=== PATIENT | female | born 1955 | race Caucasian/White ===

== ENCOUNTER → 2021-04-28 | Outpatient (CLI) | payer BC ==
--- NOTE | 2021-05-04 15:02 | RAD ---
PROCEDURE: MG BILAT SCREEN+SANDRA HISTORY: The patient is 65 years old and is seen for Reason: SCREENING / Spl. Instructions: / Histor y: . COMPARISON: June 26, 2018 and October 10, 2019. TECHNIQUE: CC and MLO views of both breasts were obtained. Images were processed by the [employer] computer-aided detection system. DENSITY: There are scattered fibroglandular densities. FINDINGS: No developing mass, suspicious calcifications or architectural distortion. IMPRESSION: Negative. No evidence of malignancy. Recommend annual screening mammograms per [employer] guidelines. BI-RADS category 1 Negative Patient entered into a reminder system for annual screening mammogram. Electronically signed by: Eduin Cruz DO (05/04/2021 3:00 PM) [email or web address]
== END ==
LOC: MAMMO 08:26
PROVIDERS: ATTEND Family Medicine
DX: Z12.31 Encounter for screening mammogram for malignant neoplasm of breast (principal)
CPT/HCPCS: 77063; 77067

== ENCOUNTER → 2021-06-07 | Outpatient (CLI) | payer BC ==
--- NOTE | 2021-06-07 16:28 | CARD ---
MR#: [id number] Date of Study: 06/07/2021 Ordering Physician: RUFUS SALGADO, Referring Physician: RUFUS SALGADO, Tech: Negar Lott, [facility] APPROVED REPORT EXAM: Two-dimensional and M-mode echocardiogram with Doppler and color Doppler. Other Information Quality : AverageHR: 85bpm INDICATION Dyspnea RISK FACTORS Hypertension Hyperlipidemia Asthma 2D DIMENSIONS RVDd2.8 (2.9-3.5cm)Left Atrium(2D)3.2 (1.6-4.0cm) IVSd0.8 (0.7-1.1cm)Aortic Root(2D)3.0 (2.0-3.7cm) LVDd5.4 (3.9-5.9cm)LVOT Diameter2.0 (1.8-2.4cm) PWd1.0 (0.7-1.1cm)LVDs3.7 (2.5-4.0cm) FS (%) 32.3 %SV85.0 ml Aortic Valve AoV Peak Devonte.143.5cm/sAoV VTI28.0cm AO Peak GR.8.2mmHgLVOT Peak Devonte.126.9cm/s LVOT VTI 23.95cmAO Mean GR.4mmHg NAZARIO (VMAX)2.51yo8PKP (VTI)2.56cm2 Mitral Valve MV E Qrsqyksh25.1cm/sMV DECEL [id number] MV A Qnhjrhap566.1cm/sE/A Ratio0.8 Pulmonary Valve PV Peak Wvcnsnsx64.5cm/sPV Peak Grad.3mmHg LEFT VENTRICLE The left ventricle is normal size. There is normal left ventricular wall thickness. The left ventricu lar systolic function is normal and the ejection fraction is within normal range. The Ejection Fracti on is 55-60%. There is normal LV segmental wall motion. Transmitral Doppler flow pattern is Grade I-a bnormal relaxation pattern. RIGHT VENTRICLE The right ventricle is normal size. There is normal right ventricular wall thickness. The right ventr icular systolic function is normal. ATRIA The left atrium size is normal. The right atrium size is normal. The interatrial septum is intact wit h no evidence for an atrial septal defect or patent foramen ovale as noted on 2-D or Doppler imaging. AORTIC VALVE The aortic valve is normal in structure and function. Doppler and Color Flow revealed no significant aortic regurgitation. There is no significant aortic valvular stenosis. Calculated aortic valve area is 2.6 cm2 with maximum pressure gradient of 8 mmHg and mean pressure gradient of 4 mmHg. MITRAL VALVE The mitral valve is normal in structure and function. There is no evidence of mitral valve prolapse. There is no mitral valve stenosis. Doppler and Color-flow revealed trace mitral regurgitation. TRICUSPID VALVE The tricuspid valve is normal in structure and function. Doppler and Color Flow revealed no tricuspid valve regurgitation noted. There is no tricuspid valve stenosis. PULMONIC VALVE The pulmonic valve is not well visualized. Doppler and Color Flow revealed trace pulmonic valvular re gurgitation. GREAT VESSELS The aortic root is normal in size. The ascending aorta is normal in size. The IVC is normal in size a nd collapses >50% with inspiration. PERICARDIAL EFFUSION There is no evidence of significant pericardial effusion. Critical Notification Critical Value: No <Conclusion> The left ventricle is normal size. The left ventricular systolic function is normal and the ejection fraction is within normal range. The Ejection Fraction is 55-60%. There is normal LV segmental wall motion. Doppler and Color Flow revealed no significant aortic regurgitation. There is no significant aortic valvular stenosis. Calculated aortic valve area is 2.6 cm2 with maximum pressure gradient of 8 mmHg and mean pressure gr adient of 4 mmHg. Doppler and Color-flow revealed trace mitral regurgitation. Doppler and Color Flow revealed no tricuspid valve regurgitation noted. Signed by : Matt Cartagena MD Electronically Approved : 06/07/2021 16:28:21
== END ==
LOC: ECHO 14:17
PROVIDERS: ATTEND Family Medicine
DX: R06.00 Dyspnea, unspecified (principal)
CPT/HCPCS: 93306